=== PATIENT | female | born 1985 | race American Indian/Alaskan Native ===

== ENCOUNTER 2020-04-28 19:53 | Emergency (ER) | payer SELFPAY ==
--- NOTE | 2020-04-28 20:34 | Event Note ---
ED Screening Note Date of service: 04/28/20 Time: 20:33 ED Screening Note: Patient presents with vague complaints of weakness She states she was seen by a doctor on Saturday and was informed to go to the ER at that time for spinal tap, however states she did not go because she could not find anyone to watch her children Patient also states she has been dealing with a systemic fungal infection for the past 8 months This initial assessment/diagnostic orders/clinical plan/treatment(s) is/are marrufo bject to change based on patients health status, clinical progression and re- assessment by fellow clinical providers in the ED. Further treatment and workup at subsequent clinical providers discretion. Patient/guardian urged not to elope from the ED as their condition may be serious if not clinically assessed and managed. Initial orders include: Labs
[2020-04-28 20:36] VITALS: BP 117/83
[2020-04-28 21:30] LABS: Basophils % (Auto) 0.3 % (0.0-1.8); Eosinophils % (Auto) 0.3 % (0.0-4.3); Hematocrit 32.1 % (30.3-42.9); Hemoglobin 11.2 gm/dl (10.1-14.3); Lymphocytes % (Auto) 27.3 % (13.4-35.0); Mean Corpuscular HGB Conc 35 % (30-34); Mean Corpuscular Volume 95 fl (79-97); Monocytes # (Auto) 0.3 K/mm3 (0.0-0.8); Monocytes % (Auto) 7.7 % (0.0-7.3); Platelet Count 295 K/mm3 (140-440); Red Blood Count 3.38 M/mm3 (3.65-5.03); Red Cell Distribution Width 13.5 % (13.2-15.2)
[2020-04-28 21:43] LABS: Alanine Aminotransferase 8 units/L (7-56); Albumin 4.7 g/dL (3.9-5); Blood Urea Nitrogen 15 mg/dL (7-17); Hemolysis Index 25
[2020-04-28 21:47] LABS: BUN/Creatinine Ratio 21
== END 2020-04-28 22:00 | disposition left against medical advice (07) ==
LOC: ED 19:53
DX: B49 Unspecified mycosis (principal); Z53.21 Procedure and treatment not carried out due to patient leaving prior to being seen by health care provider
CPT/HCPCS: 36415; 80053; 84703; 85025

== ENCOUNTER 2020-05-19 18:08 | Observation (INO) | payer OTHER ==
[2020-05-19] MEDS ORDERED: HYDROmorphone 1 MG/1 ML INJ IV ONE ×5 (18:29→23:13)
[2020-05-19] MEDS ORDERED: LACTATED RINGERS 1,000 ML IV ONE (18:29)
[2020-05-19] MEDS ORDERED: ONDANSETRON 4 MG/2 ML INJ IV ONE (18:29)
--- NOTE | 2020-05-19 18:31 | Emergency Department Report ---
ED General Adult HPI - General Chief complaint: Abdominal Pain Stated complaint: RT LOW ABDOMINAL PUI?: No Time Seen by Provider: 05/19/20 18:14 Source: patient, EMS ( EMS documentation not available at time of chart dict ation ), RN notes reviewed, old records reviewed Mode of arrival: Stretcher Limitations: Physical Limitation - History of Present Illness Initial comments: The patient was evaluated in the emergency department for symptoms described in the history of present illness. He/she was evaluated in the context of the global COVID-19 pandemic, which necessitated consideration that the patient might be at risk for infection with the virus that causes COVID-19. Institutional protocols and algorithms that pertain to the evaluation of patients at risk for COVID-19 are in a state of rapid change based on informati on released by regulatory bodies including the CDC and federal and state organizations. These policies and algorithms were followed during the patient's care in the emergency department. Please note that these policies, procedures and recommendations changed on a rapid basis. During the entire history and physical examination, I am chaperoned by Cris Moreno This is a 34-year-old female. She is not known to myself previously. She has a distant history of bariatric surgery and gastric bypass. She reports her bariatric surgeon is Dr. Ag. The patient presents to the ER today with a complaint of epigastric right upper quadrant, right flank and bilateral lower quadrant abdominal pain. This has started within the past few hours. No headache, neck pain, chest pain, shortness of breath. Positive nausea. No vomiting. She is not sure if she is having dysuria. No vaginal discharge. She is currently menstruating. Pain is sharp, throbbing and aching, increases with palpation. Decreases with rest and position and intravenous pain medicine. -: Gradual, hour(s) Location: abdomen Radiation: back Quality: aching Consistency: constant Improves with: medication, rest Worsens with: movement - Related Data Allergies Allergy/AdvReac Type Severity Reaction Status Date / Time No Known Allergies Allergy Unverified 04/28/20 20:55 ED Review of Systems ROS: Stated complaint: RT LOW ABDOMINAL Other details as noted in HPI Constitutional: malaise, weakness. denies: fever Eyes: denies: eye discharge ENT: denies: epistaxis Respiratory: denies: cough Cardiovascular: denies: chest pain Gastrointestinal: nausea. denies: hematemesis, melena, hematochezia Genitourinary: other (Vaginal bleeding at this time). denies: dysuria, frequency Musculoskeletal: back pain. denies: myalgia Neurological: weakness Psychiatric: anxiety Hematological/Lymphatic: denies: easy bleeding ED Past Medical Hx - Past Medical History Hx Diabetes: Yes - Surgical History Additional Surgical History: Gastric Bypass. Umbilical Hernia repair. C- section. Systemic Fungal Infection - Social History Smoking Status: Never Smoker Substance Use Type: None ED Physical Exam - General General appearance: alert, anxious, in distress - Head Head exam: Present: atraumatic, normocephalic - Eye Eye exam: Present: normal appearance, EOMI. Absent: nystagmus - ENT ENT exam: Present: normal exam, normal orophraynx, mucous membranes moist, normal external ear exam - Neck Neck exam: Present: normal inspection, full ROM. Absent: tenderness, meningismus - Respiratory Respiratory exam: Present: normal lung sounds bilaterally. Absent: respiratory distress, wheezes, rales, chest wall tenderness, accessory muscle use, decreased breath sounds - Cardiovascular Cardiovascular Exam: Present: regular rate, normal rhythm, normal heart sounds. Absent: bradycardia, tachycardia, irregular rhythm, systolic murmur, diastolic murmur, rubs, gallop - GI/Abdominal GI/Abdominal exam: Present: soft, tenderness, other (There is mild diffuse abdominal tenderness.). Absent: distended, guarding, rebound, rigid, pulsatile mass - External exam: Present: normal external exam Speculum exam: Present: normal speculum exam, vaginal bleeding (Minimal vaginal bleeding), other (Chaperoned by Ute moreno) Bi-manual exam: Present: adnexal tenderness (Minimal left-sided adnexal tender ness). Absent: cervical motion tendernes - Extremities Exam Extremities exam: Present: normal inspection, full ROM, other (2+ pulses noted in the bilateral upper and lower extremities. There is no palpable cord. negative Homans sign. Muscular compartments are soft. The pelvis is stable.). Absent: calf tenderness - Back Exam Back exam: Present: normal inspection, full ROM. Absent: tenderness, CVA tenderness (R), CVA tenderness (L), paraspinal tenderness, vertebral tenderness - Neurological Exam Neurological exam: Present: alert, other (No facial droop. Tongue midline. Extraocular movements intact bilaterally. Facial sensation intact to light touch in V1, V2, V3 distribution bilaterally. 5 and a 5 strength in 4 extremities. Sensation intact to light touch in 4 extremities.). Absent: motor sensory deficit - Psychiatric Psychiatric exam: Present: anxious - Skin Skin exam: Present: warm, dry, intact, normal color. Absent: rash ED Course Vital Signs 05/19/20 05/19/20 05/19/20 18:17 19:00 19:26 Temperature 98.4 F Pulse Rate 90 79 77 Respiratory 20 21 Rate Blood Pressure 130/86 Blood Pressure 125/66 [Left] O2 Sat by Pulse 99 100 Oximetry 05/19/20 05/19/20 05/19/20 19:30 19:45 19:46 Temperature Pulse Rate 80 75 84 Respiratory 18 18 10 L Rate Blood Pressure 130/87 Blood Pressure 111/68 [Left] O2 Sat by Pulse 98 97 Oximetry 05/19/20 05/19/20 05/19/20 21:08 21:15 21:28 Temperature Pulse Rate 79 74 83 Respiratory 20 18 18 Rate Blood Pressure 111/68 130/89 Blood Pressure 130/89 [Left] O2 Sat by Pulse 99 Oximetry 05/19/20 05/19/20 05/19/20 21:30 21:46 23:25 Temperature Pulse Rate 83 89 68 Respiratory 18 21 16 Rate Blood Pressure 130/89 130/89 130/89 Blood Pressure [Left] O2 Sat by Pulse 100 97 Oximetry - Reevaluation(s) Reevaluation #1: 05/19/20 19:54 Differential diagnosis, including but not limited to: Obstruction, colitis, diverticulitis, internal hernia, ovarian cyst, ovarian torsion, renal colic, urinary tract infection, bowel obstruction, narcotic bowel syndrome, cyclic vomiting syndrome, pelvic inflammatory disease Assessment and plan: 34-year-old female with diffuse abdominal pain. She is status post bariatric surgery. She has mild diffuse abdominal tenderness. Denies recent sexual contact, personal history of PID/STI. Mild gynecologic bleeding noted at this time. Minimal left-sided adnexal tenderness. We will treat her pain aggressively. Obtain CT scan of the abdomen pelvis with IV and oral contrast. Obtain pelvic ultrasound. Obtain EKG and urinalysis. Reassess after initial data points. Have discussed this plan of care with the patient, who verbalized understanding, and is amenable to this plan of care Reevaluation #2: 05/19/20 20:20 Vital Signs 05/19/20 05/19/20 05/19/20 18:17 19:00 19:45 Temperature 98.4 F Pulse Rate 90 79 75 Respiratory 20 18 Rate Blood Pressure 130/86 Blood Pressure 125/66 111/68 [Left] O2 Sat by Pulse 99 98 Oximetry 05/19/20 23:07 Patient has received multiple rounds of pain medication and nausea medication. She is still having pain. She was nauseous and vomited up x1. She is still very uncomfortable. Objective diagnostics unremarkable. CT scan reviewed and appreciated. However, we cannot exclude internal hernia/Petersons hernia. I will contact her bariatric surgeon to discuss. Patient amenable to admission for serial abdominal exams, pain control, antiemesis control, and urgent general surgical consultation. 05/20/20 00:13 I have discussed the patient's history, physical, pertinent laboratory studies and imaging studies with her general surgeon, Dr. Ag. Dr. Ag advises that her group can follow in evaluation and consultation, advises avoidance of NSAIDs, antiemetics, pain medication, nausea medication and appropriate IV fluids would be reasonable. Hospital physician, Dr. Khanna to admit ED Medical Decision Making - Lab Data Result diagrams: 05/19/20 18:44 05/19/20 18:44 Vital Signs 05/19/20 18:17 Temperature 98.4 F Pulse Rate 90 Blood Pressure 130/86 Lab Results 05/19/20 05/19/20 05/19/20 Range/Units 18:44 18:44 18:44 WBC 4.7 (4.5-11.0) K/mm3 RBC 3.52 L (3.65-5.03) M/mm3 Hgb 11.6 (10.1-14.3) gm/dl Hct 33.8 (30.3-42.9) % MCV 96 (79-97) fl MCH 33 H (28-32) pg MCHC 34 (30-34) % RDW 14.3 (13.2-15.2) % Plt Count 287 (140-440) K/mm3 PT 11.6 L (12.2-14.9) Sec. INR 0.87 (0.87-1.13) Sodium 133 L (137-145) mmol/L Potassium 5.0 (3.6-5.0) mmol/L Chloride 99.2 (98-107) mmol/L Carbon Dioxide 26 (22-30) mmol/L Anion Gap 13 mmol/L BUN 8 (7-17) mg/dL Creatinine 0.6 (0.6-1.2) mg/dL Estimated GFR > 60 ml/min BUN/Creatinine Ratio 13 % Glucose 145 H (65-100) mg/dL Calcium 9.6 (8.4-10.2) mg/dL Magnesium 2.20 (1.7-2.3) mg/dL Total Bilirubin < 0.20 (0.1-1.2) mg/dL AST 13 (5-40) units/L ALT 8 (7-56) units/L Alkaline Phosphatase 71 (35-129) units/L Total Creatine Kinase 104 (30-135) units/L Total Protein 7.1 (6.3-8.2) g/dL Albumin 4.1 (3.9-5) g/dL Albumin/Globulin Ratio 1.4 % Lipase 35 (13-60) units/L HCG, Quant (0-4) mIU/mL Urine Color (Yellow) Urine Turbidity (Clear) Urine pH (5.0-7.0) Ur Specific [place] (1.003-1.030) Urine Protein (Negative) mg/dL Urine Glucose (UA) (Negative) mg/dL Urine Ketones (Negative) mg/dL Urine Blood (Negative) Urine Nitrite (Negative) Urine Bilirubin (Negative) Urine Urobilinogen (<2.0) mg/dL Ur Leukocyte Esterase (Negative) Urine WBC (Auto) (0.0-6.0) /HPF Urine RBC (Auto) (0.0-6.0) /HPF U Epithel Cells (Auto) (0-13.0) /HPF 05/19/20 05/19/20 Range/Units 18:44 Unknown WBC (4.5-11.0) K/mm3 RBC (3.65-5.03) M/mm3 Hgb (10.1-14.3) gm/dl Hct (30.3-42.9) % MCV (79-97) fl MCH (28-32) pg MCHC (30-34) % RDW (13.2-15.2) % Plt Count (140-440) K/mm3 PT (12.2-14.9) Sec. INR (0.87-1.13) Sodium (137-145) mmol/L Potassium (3.6-5.0) mmol/L Chloride (98-107) mmol/L Carbon Dioxide (22-30) mmol/L Anion Gap mmol/L BUN (7-17) mg/dL Creatinine (0.6-1.2) mg/dL Estimated GFR ml/min BUN/Creatinine Ratio % Glucose (65-100) mg/dL Calcium (8.4-10.2) mg/dL Magnesium (1.7-2.3) mg/dL Total Bilirubin (0.1-1.2) mg/dL AST (5-40) units/L ALT (7-56) units/L Alkaline Phosphatase (35-129) units/L Total Creatine Kinase (30-135) units/L Total Protein (6.3-8.2) g/dL Albumin (3.9-5) g/dL Albumin/Globulin Ratio % Lipase (13-60) units/L HCG, Quant < 2 (0-4) mIU/mL Urine Color Yellow (Yellow) Urine Turbidity Clear (Clear) Urine pH 8.0 H (5.0-7.0) Ur Specific [place] 1.018 (1.003-1.030) Urine Protein <15 mg/dl (Negative) mg/dL Urine Glucose (UA) Neg (Negative) mg/dL Urine Ketones Neg (Negative) mg/dL Urine Blood Lg (Negative) Urine Nitrite Neg (Negative) Urine Bilirubin Neg (Negative) Urine Urobilinogen < 2.0 (<2.0) mg/dL Ur Leukocyte Esterase Neg (Negative) Urine WBC (Auto) 1.0 (0.0-6.0) /HPF Urine RBC (Auto) 101.0 (0.0-6.0) /HPF U Epithel Cells (Auto) 1.0 (0-13.0) /HPF - EKG Data -: EKG Interpreted by [facility] EKG shows normal: sinus rhythm Rate: normal - EKG Data When compared to previous EKG there are: previous EKG unavailable 05/19/20 21:26 EKG interpreted at 21: 11 Sinus rhythm, 70 bpm. Normal axis, normal intervals, high left ventricular voltage.. Poor R wave progression, low voltage in V2. This is an abnormal EKG. This is not a STEMI. - Radiology Data Radiology results: pending Critical care attestation.: If time is entered above; I have spent that time in minutes in the direct care of this critically ill patient, excluding procedure time. ED Disposition Clinical Impression: Acute abdominal pain, History of bariatric surgery, Intractable abdominal pain Disposition: OP ADMIT IP TO THIS HOSP Is pt being admited?: Yes Does the pt Need Aspirin: No Condition: Good Instructions: Abdominal Pain (ED) Referrals: PRIMARY CARE, [Primary Care Provider] - 3-5 Days
[2020-05-19 19:00] LABS: Hematocrit 33.8 % (30.3-42.9); Hemoglobin 11.6 gm/dl (10.1-14.3); Mean Corpuscular HGB Conc 34 % (30-34); Mean Corpuscular Volume 96 fl (79-97); Platelet Count 287 K/mm3 (140-440); Red Blood Count 3.52 M/mm3 (3.65-5.03); Red Cell Distribution Width 14.3 % (13.2-15.2)
[2020-05-19 19:06] LABS: Bilirubin,Urine NEG (Negative); Blood,Urine LG (Negative); Color,Urine Yellow (Yellow); Protein,Urine <15 mg/dL mg/dL (Negative); Urobilinogen,Urine < 2.0 mg/dL (<2.0)
[2020-05-19 19:11] LABS: INR 0.87 (0.87-1.13)
[2020-05-19 19:18] LABS: Alanine Aminotransferase 8 units/L (7-56); Albumin 4.1 g/dL (3.9-5); BUN/Creatinine Ratio 13; Blood Urea Nitrogen 8 mg/dL (7-17); Calcium 9.6 mg/dL (8.4-10.2); Hemolysis Index 5
[2020-05-19] MEDS ORDERED: FAMOTIDINE 20 MG/2 ML INJ IV ONE (19:32)
--- NOTE | 2020-05-19 21:33 | Ultrasound Report ---
US pelvis duplex doppler comp INDICATION / CLINICAL INFORMATION: acute lower abd pain COMPARISON: None available. TECHNIQUE: Multiple sonographic images of the pelvis were obtained and assessed for grayscale appeara nce and color Doppler flow. FINDINGS: The uterus measures 7.2 x 3.5 x 5.6 cm and is normal in echogenicity. The endometrial stripe measures 0.3 cm in thickness. The uterus is anteflexed and anteverted. The right ovary measures 2.9 x 2.1 x 2.4 cm and is normal in echogenicity. There is normal Doppler fl ow to the right ovary. Several tiny right ovarian follicles are noted. The left ovary measures 3.0 x 1.8 x 1.3 cm and is normal in echogenicity. There is normal Doppler poncho w to left ovary. There is no free fluid in the cul-de-sac. IMPRESSION: No significant sonographic abnormalities. Signer Name: Evan Harris MD Signed: 05/19/2020 9:28 PM Workstation Name: [email or web address]
[2020-05-19] MEDS ORDERED: METOCLOPRAMIDE 10 MG/2 ML INJ IV ONE (21:47)
--- NOTE | 2020-05-19 21:54 | Cat Scan Report ---
CT ABDOMEN AND PELVIS WITH CONTRAST INDICATION / CLINICAL INFORMATION: Pt states acute R.U.Q., RIGHT Mid R.L.Q. abdominal pain.. TECHNIQUE: Axial CT images were obtained through the abdomen and pelvis following the administration of intraven ous contrast. All CT scans at this location are performed using CT dose reduction for ALARA by means of automated exposure control. COMPARISON: None available. FINDINGS: LOWER CHEST: No significant abnormality. LIVER: No significant abnormality. GALLBLADDER: No significant abnormality. PANCREAS: No significant abnormality. SPLEEN: No significant abnormality. ADRENALS: No significant abnormality. KIDNEYS / URETERS: No significant abnormality. URINARY BLADDER: No significant abnormality. REPRODUCTIVE ORGANS: No significant abnormality. STOMACH / SMALL BOWEL: No significant abnormality. COLON: No significant abnormality. Moderate ascending colonic stool burden. APPENDIX: No significant abnormality. PERITONEUM: No free fluid. No free air. No fluid collection. LYMPH NODES: No significant adenopathy. AORTA / ARTERIES: No significant abnormality. IVC / VEINS: No significant abnormality. SKELETAL SYSTEM: No significant abnormality. ADDITIONAL FINDINGS: None. IMPRESSION: 1. No acute abdominopelvic abnormality. 2. Moderate ascending colonic stool burden. Signer Name: Evan Harris MD Signed: 05/19/2020 9:50 PM Workstation Name: [email or web address]
[2020-05-19 22:12] LABS: Amphetamine Screen,Urine PRESUMPTIVE NEGATIVE; Benzodiazepines Screen,Urine PRESUMPTIVE NEGATIVE; Cannabinoid Screen,Urine PRESUMPTIVE NEGATIVE; Cocaine Screen,Urine PRESUMPTIVE NEGATIVE; Methadone Screen,Urine PRESUMPTIVE NEGATIVE; Opiate Screen,Urine PRESUMPTIVE NEGATIVE
[2020-05-20] MEDS ORDERED: ACETAMINOPHEN 325 MG TAB PO PRN (00:28)
[2020-05-20] MEDS ORDERED: ONDANSETRON 4 MG/2 ML INJ IV PRN ×2 (00:28→14:58)
[2020-05-20] MEDS ORDERED: hydrALAZINE 20 MG/1 ML INJ IV PRN (00:30)
--- NOTE | 2020-05-20 00:37 | History and Physical Report ---
History of Present Illness Date of examination: 05/20/20 Date of admission: 05/19/20 Chief complaint: Abdominal pain Nausea History of present illness: 34-year-old female with history of bariatric surgery and gastric bypass was brought to the emergency room because of epigastric right upper quadrant, right flank and bilateral lower quadrant abdominal pain for the past few hours. Pain is sharp, throbbing and aching, increases with palpation. Decreases with rest and position and intravenous pain medicine. Patient complained of nausea nausea. No vomiting. She is not sure if she is having dysuria. No vaginal discharge. She is currently menstruating. CT scan of the abdomen and pelvis shows no acute abdominal pelvic abnormality moderate ascending colonic stool burden. Dr. Ag will see the patient in consultation Past History Past Medical History: other (Bariatric surgery) Medications and Allergies Allergies Allergy/AdvReac Type Severity Reaction Status Date / Time No Known Allergies Allergy Unverified 04/28/20 20:55 Active Meds: Active Medications Acetaminophen (Acetaminophen 325 Mg Tab) 650 mg PO Q4H PRN PRN Reason: Pain MILD(1-3)/Fever >100.5/[place] Famotidine (Famotidine 20 Mg/2 Ml Inj) 20 mg IV BID MARISOL Heparin Sodium (Porcine) (Heparin 5,000 Unit/1 Ml Vial) 5,000 unit SUB-Q Q8HR MARISOL Hydralazine HCl (Hydralazine 20 Mg/1 Ml Inj) 10 mg IV Q6H PRN PRN Reason: htn Dextrose/Sodium Chloride (D5/0.45ns) 1,000 mls @ 100 mls/hr IV DIRECT MARISOL Morphine Sulfate (Morphine 2 Mg/1 Ml Inj) 2 mg IV Q4H PRN PRN Reason: Pain, Moderate (4-6) Ondansetron HCl (Ondansetron 4 Mg/2 Ml Inj) 4 mg IV Q8H PRN PRN Reason: Nausea And Vomiting Sodium Chloride (Sodium Chloride 0.9% 10 Ml Flush Syringe) 10 ml IV BID MARISOL Sodium Chloride (Sodium Chloride 0.9% 10 Ml Flush Syringe) 10 ml IV PRN PRN PRN Reason: LINE FLUSH Review of Systems Constitutional: weakness Gastrointestinal: abdominal pain, nausea Exam - Constitutional Vitals: Temp Pulse Resp BP Pulse Ox 98.4 F 68 16 130/89 97 05/19/20 18:17 05/19/20 23:25 05/19/20 23:25 05/19/20 23:25 05/19/20 23:25 General appearance: Present: no acute distress, well-nourished - EENT Eyes: Present: PERRL ENT: hearing intact, clear oral mucosa - Neck Neck: Present: supple, normal ROM - Respiratory Respiratory effort: normal Respiratory: bilateral: CTA - Cardiovascular Heart Sounds: Present: S1 & S2. Absent: rub, click - Extremities Extremities: pulses symmetrical, No edema Peripheral Pulses: within normal limits - Abdominal General gastrointestinal: Present: soft, tender, non-distended, normal bowel sounds Female genitourinary: Present: normal - Integumentary Integumentary: Present: clear, warm, dry - Musculoskeletal Musculoskeletal: gait normal, strength equal bilaterally - Psychiatric Psychiatric: appropriate mood/affect, intact judgment & insight - Neurologic Neurologic: CNII-XII intact, moves all extremities Results - Labs CBC & Chem 7: 05/19/20 18:44 05/19/20 18:44 Labs: Laboratory Last Values WBC 4.7 K/mm3 (4.5-11.0) 05/19/20 18:44 RBC 3.52 M/mm3 (3.65-5.03) L 05/19/20 18:44 Hgb 11.6 gm/dl (10.1-14.3) 05/19/20 18:44 Hct 33.8 % (30.3-42.9) 05/19/20 18:44 MCV 96 fl (79-97) 05/19/20 18:44 MCH 33 pg (28-32) H 05/19/20 18:44 MCHC 34 % (30-34) 05/19/20 18:44 RDW 14.3 % (13.2-15.2) 05/19/20 18:44 Plt Count 287 K/mm3 (140-440) 05/19/20 18:44 PT 11.6 Sec. (12.2-14.9) L 05/19/20 18:44 INR 0.87 (0.87-1.13) 05/19/20 18:44 Sodium 133 mmol/L (137-145) L 05/19/20 18:44 Potassium 5.0 mmol/L (3.6-5.0) 05/19/20 18:44 Chloride 99.2 mmol/L (98-107) 05/19/20 18:44 Carbon Dioxide 26 mmol/L (22-30) 05/19/20 18:44 Anion Gap 13 mmol/L 05/19/20 18:44 BUN 8 mg/dL (7-17) 05/19/20 18:44 Creatinine 0.6 mg/dL (0.6-1.2) 05/19/20 18:44 Estimated GFR > 60 ml/min 05/19/20 18:44 BUN/Creatinine Ratio 13 % 05/19/20 18:44 Glucose 145 mg/dL (65-100) H 05/19/20 18:44 Lactic Acid 1.50 mmol/L (0.7-2.0) 05/19/20 19:41 Calcium 9.6 mg/dL (8.4-10.2) 05/19/20 18:44 Magnesium 2.20 mg/dL (1.7-2.3) 05/19/20 18:44 Total Bilirubin < 0.20 mg/dL (0.1-1.2) 05/19/20 18:44 AST 13 units/L (5-40) 05/19/20 18:44 ALT 8 units/L (7-56) 05/19/20 18:44 Alkaline Phosphatase 71 units/L (35-129) 05/19/20 18:44 Total Creatine Kinase 104 units/L (30-135) 05/19/20 18:44 Total Protein 7.1 g/dL (6.3-8.2) 05/19/20 18:44 Albumin 4.1 g/dL (3.9-5) 05/19/20 18:44 Albumin/Globulin Ratio 1.4 % 05/19/20 18:44 Amylase 55 units/L (27-131) 05/19/20 18:44 Lipase 35 units/L (13-60) 05/19/20 18:44 HCG, Quant < 2 mIU/mL (0-4) 05/19/20 18:44 Urine Color Yellow (Yellow) 05/19/20 Unknown Urine Turbidity Clear (Clear) 05/19/20 Unknown Urine pH 8.0 (5.0-7.0) H 05/19/20 Unknown Ur Specific [place] 1.018 (1.003-1.030) 05/19/20 Unknown Urine Protein <15 mg/dl mg/dL (Negative) 05/19/20 Unknown Urine Glucose (UA) Neg mg/dL (Negative) 05/19/20 Unknown Urine Ketones Neg mg/dL (Negative) 05/19/20 Unknown Urine Blood Lg (Negative) 05/19/20 Unknown Urine Nitrite Neg (Negative) 05/19/20 Unknown Urine Bilirubin Neg (Negative) 05/19/20 Unknown Urine Urobilinogen < 2.0 mg/dL (<2.0) 05/19/20 Unknown Ur Leukocyte Esterase Neg (Negative) 05/19/20 Unknown Urine WBC (Auto) 1.0 /HPF (0.0-6.0) 05/19/20 Unknown Urine RBC (Auto) 101.0 /HPF (0.0-6.0) 05/19/20 Unknown U Epithel Cells (Auto) 1.0 /HPF (0-13.0) 05/19/20 Unknown Urine Opiates Screen Presumptive negative 05/19/20 Unknown Urine Methadone Screen Presumptive negative 05/19/20 Unknown Ur Barbiturates Screen Presumptive negative 05/19/20 Unknown Ur Phencyclidine Scrn Presumptive negative 05/19/20 Unknown Ur Amphetamines Screen Presumptive negative 05/19/20 Unknown U Benzodiazepines Scrn Presumptive negative 05/19/20 Unknown Urine Cocaine Screen Presumptive negative 05/19/20 Unknown U Marijuana (THC) Screen Presumptive negative 05/19/20 Unknown Drugs of Abuse Note Disclamer 05/19/20 Unknown Microbiology: Microbiology 05/19/20 19:26 Vaginal Wet Prep - Final - Imaging and Cardiology CT scan - abdomen: image reviewed Assessment and Plan VTE prophylaxis?: Chemical Plan of care discussed with patient/family: Yes - Patient Problems (1) Acute abdominal pain Current Visit: Yes Status: Acute Plan to address problem: Admit the patient to the medical telemetry. Put the patient on nothing by mouth. IV fluid D5 half-normal saline at the rate of 100 cc/h. Pepcid 20 mg IV every 12 hours. Zofran 4 mg IV every 4 hours as needed. Morphine 2 mg IV every [address] Dias will see the patient in consultation in the morning. Recheck CBC BMP in the morning (2) History of bariatric surgery Current Visit: Yes Status: Acute Plan to address problem: Pepcid 20 mg IV every 12 hours. Zofran 4 mg IV every 4 hours as needed. Morphine 2 mg IV every [address] Dias will see the patient in consultation in the morning. Recheck CBC BMP in the morning (3) Nausea Current Visit: Yes Status: Acute Plan to address problem: Pepcid 20 mg IV every 12 hours. Zofran 4 mg IV every 4 hours as needed. (4) DVT prophylaxis Current Visit: Yes Status: Acute Plan to address problem: Heparin 5000 units subcu every 8 hours for DVT prophylaxis. Pepcid 20 mg IV every 12 hours for GI prophylaxis. Patient is a full code
[2020-05-20] MEDS: D5W/0.45% NACL 1,000 ML IV SCH ×2 (01:55→17:46)
[2020-05-20] MEDS: MORPHINE 2 MG/1 ML INJ IV PRN ×2 (01:56→07:44)
[2020-05-20] MEDS: HEPARIN 5,000 UNIT/1 ML VIAL SUB-Q SCH ×3 (07:44→22:19)
[2020-05-20] MEDS ORDERED: KETOROLAC 30 MG/1 ML INJ IV STA (09:32)
[2020-05-20] MEDS: FAMOTIDINE 20 MG/2 ML INJ IV SCH ×2 (09:43→22:19)
[2020-05-20] MEDS ORDERED: MORPHINE 2 MG/1 ML INJ IV PRN ×2 (10:00→15:53)
--- NOTE | 2020-05-20 10:02 | Consultation ---
History of Present Illness Consult date: 05/20/20 Reason for consult: abdominal pain - History of present illness History of present illness: 34 year old female who had gastric bypass by me about 6 years ago. She has lost over 100lbs and overall doing well. She presented to the ED yesterday with a one day hx of intense abdominal pain focused in the epigastric area and radiating to her RLQ. She denies nausea or vomiting at this time but says she was nauseous in the ER. She says that she has been concerned about her health for a while and not feeling well in general. She had seen a doctor to work up her symptoms of difficulty breathing, rashes, and overall not feeling well (others in her household have had similar symptoms), she says they found multiple toxins in her system. She has since moved out of the housing she was in but does not feel much better. She had CT scan and US in the ED that were unremarkable for acute pathology. In terms of bariatric maintenance she says she has been taking her vitamins and following the program. Past History Past Medical History: other (Bariatric surgery) Past Surgical History: Other (gatraic bypass) Medications and Allergies Allergies Allergy/AdvReac Type Severity Reaction Status Date / Time No Known Allergies Allergy Verified 05/20/20 00:33 Active Meds: Active Medications Acetaminophen (Acetaminophen 325 Mg Tab) 650 mg PO Q4H PRN PRN Reason: Pain MILD(1-3)/Fever >100.5/[place] Famotidine (Famotidine 20 Mg/2 Ml Inj) 20 mg IV BID [facility] Last Admin: 05/20/20 09:43 Dose: 20 mg Documented by: Heparin Sodium (Porcine) (Heparin 5,000 Unit/1 Ml Vial) 5,000 unit SUB-Q Q8HR [facility] Last Admin: 05/20/20 07:44 Dose: 5,000 unit Documented by: Hydralazine HCl (Hydralazine 20 Mg/1 Ml Inj) 10 mg IV Q6H PRN PRN Reason: htn Dextrose/Sodium Chloride (D5/0.45ns) 1,000 mls @ 100 mls/hr IV DIRECT [facility] Last Admin: 05/20/20 01:55 Dose: 100 mls/hr Documented by: Morphine Sulfate (Morphine 2 Mg/1 Ml Inj) 2 mg IV Q4H PRN PRN Reason: Pain, Moderate (4-6) Ondansetron HCl (Ondansetron 4 Mg/2 Ml Inj) 4 mg IV Q8H PRN PRN Reason: Nausea And Vomiting Last Admin: 05/20/20 01:56 Dose: 4 mg Documented by: Sodium Chloride (Sodium Chloride 0.9% 10 Ml Flush Syringe) 10 ml IV BID [facility] Last Admin: 05/20/20 09:44 Dose: 10 ml Documented by: Sodium Chloride (Sodium Chloride 0.9% 10 Ml Flush Syringe) 10 ml IV PRN PRN PRN Reason: LINE FLUSH Review of Systems - Constitutional malaise, poor appetite - Respiratory no shortness of breath - Gastrointestinal abdominal pain, nausea - Integumentary rash Exam Vital Signs Temp Pulse BP 98.4 F 90 130/86 05/19/20 18:17 05/19/20 18:17 05/19/20 18:17 - General physical appearance Positive: well developed, no distress, moderate pain - Respiratory Positive: normal expansion, normal respiratory effort - Cardiovascular Heart Sounds: Present: S1 & S2 - Abdomen Abdomen: Present: soft, other (generalized tenderness to palpation). Absent: distended, guarding, rigid Results - Labs 05/19/20 18:44 05/19/20 18:44 Abnormal lab results 05/19/20 05/19/20 05/19/20 Range/Units 18:44 18:44 18:44 RBC 3.52 L (3.65-5.03) M/mm3 MCH 33 H (28-32) pg PT 11.6 L (12.2-14.9) Sec. Sodium 133 L (137-145) mmol/L Glucose 145 H (65-100) mg/dL Urine pH (5.0-7.0) 05/19/20 Range/Units Unknown RBC (3.65-5.03) M/mm3 MCH (28-32) pg PT (12.2-14.9) Sec. Sodium (137-145) mmol/L Glucose (65-100) mg/dL Urine pH 8.0 H (5.0-7.0) Diabetes panel 05/19/20 Range/Units 18:44 Sodium 133 L (137-145) mmol/L Potassium 5.0 (3.6-5.0) mmol/L Chloride 99.2 (98-107) mmol/L Carbon Dioxide 26 (22-30) mmol/L BUN 8 (7-17) mg/dL Creatinine 0.6 (0.6-1.2) mg/dL Glucose 145 H (65-100) mg/dL Calcium 9.6 (8.4-10.2) mg/dL AST 13 (5-40) units/L ALT 8 (7-56) units/L Alkaline Phosphatase 71 (35-129) units/L Total Protein 7.1 (6.3-8.2) g/dL Albumin 4.1 (3.9-5) g/dL Calcium panel 05/19/20 Range/Units 18:44 Calcium 9.6 (8.4-10.2) mg/dL Albumin 4.1 (3.9-5) g/dL Pituitary panel 05/19/20 Range/Units 18:44 Sodium 133 L (137-145) mmol/L Potassium 5.0 (3.6-5.0) mmol/L Chloride 99.2 (98-107) mmol/L Carbon Dioxide 26 (22-30) mmol/L BUN 8 (7-17) mg/dL Creatinine 0.6 (0.6-1.2) mg/dL Glucose 145 H (65-100) mg/dL Calcium 9.6 (8.4-10.2) mg/dL Adrenal panel 05/19/20 Range/Units 18:44 Sodium 133 L (137-145) mmol/L Potassium 5.0 (3.6-5.0) mmol/L Chloride 99.2 (98-107) mmol/L Carbon Dioxide 26 (22-30) mmol/L BUN 8 (7-17) mg/dL Creatinine 0.6 (0.6-1.2) mg/dL Glucose 145 H (65-100) mg/dL Calcium 9.6 (8.4-10.2) mg/dL Total Bilirubin < 0.20 (0.1-1.2) mg/dL AST 13 (5-40) units/L ALT 8 (7-56) units/L Alkaline Phosphatase 71 (35-129) units/L Total Protein 7.1 (6.3-8.2) g/dL Albumin 4.1 (3.9-5) g/dL - Imaging CT scan - abdomen: pending, report reviewed, image reviewed CT scan - chest: pending CT scan - pelvis: report reviewed, image reviewed US - pelvic: report reviewed Assessment and Plan 34 year old female with hx of gastric bypass, no acute abdominal pain of unclear etiology. Afebrile and stable. Will take to OR today for diagnostic laparoscopy and EGD. If no abnormal findings will defer further workup of symptoms to primary. Pt is consented and expressed understanding of the risks and benefits.
[2020-05-20] MEDS ORDERED: LIDOCAINE (1%) 10 MG/1 ML VIAL 20 ML MDV ONE (10:05)
[2020-05-20] MEDS ORDERED: BUPIVACAINE/PF (0.5%) 5 MG/1 ML 30 ML VIAL INFILTRATI ONE ×2 (10:06→13:38)
--- NOTE | 2020-05-20 11:19 | Ultrasound Report ---
ULTRASOUND RENAL INDICATION: Flank pain. COMPARISON: No relevant prior imaging study available. FINDINGS: RIGHT KIDNEY: Size: 10.3 cm. Echogenicity: Normal. Cortical thickness: 1.5 cm. Stones: None. Hydronephrosis: None. Cyst or mass: None. LEFT KIDNEY: Size: 9.3 cm. Echogenicity: Normal. Cortical thickness: 1.6 cm. Stones: None. Hydronephrosis: None. Cyst or mass: None. Urinary Bladder: No significant abnormality. Free Fluid: None. Additional Findings: None. IMPRESSION 1. No acute sonographic abnormality of the kidneys. Signer Name: Kenney De La O MD Signed: 05/20/2020 11:04 AM Workstation Name: [id number]
--- NOTE | 2020-05-20 11:32 | Electrocardiograph Report ---
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
--- NOTE | 2020-05-20 11:46 | Event Note ---
Patient admitted with abdominal pain with radiation toward the right flank. Notes nausea and vomiting. +pain with urination. CT abdomen and pelvis w contrast showed no stone or acute pathology. She is inconsistent with her story this AM. Remains on pain medications. Surgery consulted for evaluation as she has a history of bypass surgery many years ago. Plan for laparascopy and EGD as per surgery.
[2020-05-20] MEDS ORDERED: LIDOCAINE MPF (2%) 20 MG/1 ML VIAL 5 ML ONE (11:50)
[2020-05-20] MEDS ORDERED: propofoL 200 MG/20 ML VIAL IV ONE (11:50)
[2020-05-20] MEDS ORDERED: HYDROmorphone 1 MG/1 ML INJ ONE (11:50)
[2020-05-20] MEDS ORDERED: dexAMETHasone 20 MG/5 ML VIAL ONE (11:50)
[2020-05-20] MEDS ORDERED: ROCURONIUM 50 MG/5 ML INJ IV ONE (11:50)
[2020-05-20] MEDS ORDERED: ONDANSETRON 4 MG/2 ML INJ ONE (11:50)
--- NOTE | 2020-05-20 11:50 | Anesthesia Consultation ---
Anesthesia Consult and Med Hx Date of service: 05/20/20 - Airway Anesthetic Teeth Evaluation: Good ROM Head & Neck: Adequate Mental/Hyoid Distance: Adequate Mallampati Class: Class II Intubation Access Assessment: Probably Good - Pre-Operative Health Status ASA Pre-Surgery Classification: ASA2 Proposed Anesthetic Plan: General - Pulmonary Hx Smoking: Yes (few cig/day) Hx Asthma: No COPD: No Hx Pneumonia: No - Cardiovascular System Hx Hypertension: Yes (on hydralizine PRN) - Central Nervous System Hx Psychiatric Problems: No (patient is anxious) - Gastrointestinal Hx Gastroesophageal Reflux Disease: Yes (s/p gastric bypass (2014)) - Endocrine Hx Non-Insulin Dependent Diabetes: Yes (resolved after the weight loss) - Other Systems Hx Obesity: Yes (s/p gastric bypass (2014)) - Additional Comments Anesthesia Medical History Comments: patient is convinced that her problem caused by household mycotoxins
--- NOTE | 2020-05-20 11:51 | Anesthesia Day of Surgery ---
Anesthesia Day of Surgery - Day of Surgery Patient Examined: Yes Patient H&P Reviewed: Yes Patient is NPO: Yes
[2020-05-20] MEDS ORDERED: MIDAZOLAM 2 MG/2 ML INJ IV NR (12:12)
[2020-05-20] MEDS ORDERED: ceFAZolin/STERILE WATER 2 GM/20 ML SYRINGE IV NR (12:29)
[2020-05-20] MEDS ORDERED: LACTATED RINGERS 1,000 ML IV SCH (12:30)
[2020-05-20] MEDS ORDERED: metroNIDAZOLE/NS 500 MG/100 ML 500 MG/100 ML BAG IV NR (13:00)
[2020-05-20] MEDS ORDERED: SODIUM CHLORIDE 0.9% IRR 1,500 ML BOTTLE IR ONE (13:38)
[2020-05-20] MEDS ORDERED: LIDOCAINE (1%) 10 MG/1 ML VIAL 20 ML MDV INFILTRATI ONE (13:38)
[2020-05-20] MEDS ORDERED: SUCCINYLCHOLINE CHLORIDE 200 MG/10 ML INJ MDV ONE (13:55)
[2020-05-20] MEDS ORDERED: LACTATED RINGERS 1,000 ML ONE (13:55)
[2020-05-20] MEDS ORDERED: NEOSTIGMINE 10MG/10 ML INJ MDV ONE (14:00)
[2020-05-20] MEDS ORDERED: GLYCOPYRROLATE 0.4 MG/2 ML INJ ONE (14:00)
[2020-05-20] MEDS ORDERED: fentaNYL 100 MCG/2 ML INJ ONE (14:09)
[2020-05-20] MEDS ORDERED: HYDROmorphone 1 MG/1 ML INJ IV PRN ×2 (14:58)
--- NOTE | 2020-05-20 15:13 | Operative Report ---
Operative Report Operative Report: Date: May 20, 2020 Surgeon: Esther Ag MD Human Resources Hr Representative surgeon: Elvi Salgado DO Procedure:1. Diagnostic laparoscopy, 2. Closure of internal hernia, 3. egd Preop diagnosis: Abdominal pain Postop diagnosis: Internal hernia at Roa space Anesthesia:GETA Indication: Patient is a 34-year-old female who presented to the emergency room with a 1 day history of acute severe abdominal pain. She has a history of laparoscopic gastric bypass 6 years ago. All radiographic studies were essentially negative in the ER. Patient was consented for diagnostic laparoscopy to look for any pathology that may have been missed on imaging since her pain was so severe. Details of procedure: Patient brought into the OR suite and laid in supine position. Bilateral lower extremity SCDs were placed. General anesthesia was induced via successful endotracheal tube intubation. A Miller catheter was inserted under sterile conditions. Patient abdomen was prepped and draped in sterile fashion with her arms tucked at her side. After timeout was performed, a Veress needle was used to insufflate the abdomen to a pressure of 15 mmHg. After this a 5 mm trocar was placed using Optiview technique just superior and to the left of the umbilicus. There was noted to be no gross injury to any intra-abdominal structures. 3 working trochars were placed under direct visualization. 5 mm trocar in the left midabdomen, right midabdomen, and right anterior axillary line. Started by running the small bowel limbs to identify orientation. Starting at the Pauline limb it was noted to be twisting like a julian pull around its pedicle. For fear of being confused it was decided to run the common channel starting at the terminal ileum, from distal to proximal. As this was being done, the jejunojejunostomy was reduced from the internal hernia space. Once all bowel was reduced and its correct orientation, the 3 limbs, Pauline limb, common channel and BP limb were all identified and verified. There was noted to be an internal hernia defect at Roa space between the Pauline limb mesentery and the colon. This was closed with a running Surgidek suture. The appendix was examined and found to be within normal limits. And no other pathology was appreciated. There was a 12 mm trocar that replaced the right mid abdomen 5 mm trocar in order to accommodate the Endo Stitch. This fascial defect was closed with a 0 Vicryl using a Zackary Arnold device. The abdomen was then desufflated all trochars removed. skin incisions were closed with 4 Monocryl. All incisions were locally anesthetized with 50-50 lidocaine Marcaine mixture. An EGD was then performed without incident that showed a gastric pouch about 30 mils in capacity, with a gastrojejunostomy anastomosis of about 20 mm. There were no signs of ulceration or suture granuloma. Patient was awoken extubated and taken to recovery in stable condition. All counts were correct. EBL: Less than 5 mL Complications: None immediate Findings: Internal hernia at Roa space
--- NOTE | 2020-05-20 15:13 | Post Anesthesia Evaluation ---
- Post Anesthesia Evaluation Patient Participated: Yes Airway Patent: Yes Stable Respiratory Function: Yes Nausea/Vomiting: No Temp > 96.8F: Yes Pain Manageable: Yes Adequeate Hydration: Yes Anesthesia Complications: No Block Receding Appropriately: Not Applicable Patient on Ventilator: No
[2020-05-20] MEDS ORDERED: oxyCODONE /ACETAMINOPHEN 5-325MG TAB PO PRN (15:53)
--- NOTE | 2020-05-20 17:16 | Event Note ---
Date: 05/20/20 Evaluated pt post op. Pt says she feels significantly better than pre-op with almost resolution of abdominal pain. She was tolerating liquids. Pt can be discharged in am and follow up in two weeks in the office to see me. She can advance diet as tolerated.
[2020-05-20] MEDS: KETOROLAC 30 MG/1 ML INJ IV SCH ×3 (17:47→23:47)
[2020-05-21] MEDS: KETOROLAC 30 MG/1 ML INJ IV SCH (05:22)
[2020-05-21] MEDS: HEPARIN 5,000 UNIT/1 ML VIAL SUB-Q SCH (05:23)
[2020-05-21 07:25] VITALS: BP 103/68
[2020-05-21 08:04] LABS: Basophils % (Auto) 0.3 % (0.0-1.8); Eosinophils % (Auto) 0.1 % (0.0-4.3); Hematocrit 28.7 % (30.3-42.9); Hemoglobin 9.8 gm/dl (10.1-14.3); Lymphocytes # (Auto) 1.7 K/mm3 (1.2-5.4); Lymphocytes % (Auto) 18.9 % (13.4-35.0); Mean Corpuscular HGB Conc 34 % (30-34); Mean Corpuscular Volume 95 fl (79-97); Monocytes # (Auto) 0.7 K/mm3 (0.0-0.8); Monocytes % (Auto) 7.3 % (0.0-7.3); Platelet Count 249 K/mm3 (140-440); Red Blood Count 3.02 M/mm3 (3.65-5.03)
[2020-05-21 08:06] LABS: Blood Urea Nitrogen 6 mg/dL (7-17); Hemolysis Index 0
[2020-05-21 08:14] LABS: BUN/Creatinine Ratio 9
[2020-05-21] MEDS: FAMOTIDINE 20 MG/2 ML INJ IV SCH ×2 (08:31→10:00)
--- NOTE | 2020-05-21 08:42 | Discharge Summary ---
Providers - Providers Date of Admission: 05/20/20 00:14 Date of discharge: 05/21/20 Attending physician: TAO MACHUCA 05/19/20 23:05 Consult to Physician [CONS] Urgent Comment: Dr. Lindsey spoke with Dr. Ag @ [id number] Consulting Provider: SANDIE AG Physician Instructions: Reason For Exam: intractable abd pain Primary care physician: ECONOMIC ANALYSIS DIRECTOR Hospitalization Condition: Good Hospital course: 34-year-old female with history of bariatric surgery and gastric bypass was brought to the emergency room because of epigastric right upper quadrant, right flank and bilateral lower quadrant abdominal pain for the past few hours. Pain is sharp, throbbing and aching, increases with palpation. Decreases with rest a nd position and intravenous pain medicine. Patient complained of nausea nausea. No vomiting. She is not sure if she is having dysuria. No vaginal discharge. She is currently menstruating. CT abdomen and pelvis with contrast showed no stone no acute pathology. Surgery was consulted for evaluation as she has a history of gastric bypass many years ago. General surgery recommended laparoscopy and EGD which she had on 05/20. Laparoscopy showed an internal hernia at the Roa space which was treated. EGD showed gastric pouch about 30 mils in capacity with a gastrojejunostomy anastomosis of about 20 mm. There were no signs of ulceration or suture granuloma. Patient subsequently felt better after procedure and will be discharged to follow-up for surgery 2 weeks. Patient agrees with treatment. Disposition: DC-01 TO HOME OR SELFCARE Final Discharge Diagnosis (Prints w/discharge instructions): Abdominal pain Exam - Constitutional Vitals: Temp Pulse Resp BP Pulse Ox 98.5 F 87 16 103/68 95 05/21/20 07:14 05/21/20 07:14 05/21/20 07:14 05/21/20 07:14 05/21/20 07:14 General appearance: Present: no acute distress, well-nourished - EENT Eyes: Present: PERRL ENT: hearing intact, clear oral mucosa - Neck Neck: Present: supple, normal ROM - Respiratory Respiratory effort: normal Respiratory: bilateral: CTA - Cardiovascular Heart Sounds: Present: S1 & S2. Absent: rub, click - Extremities Extremities: pulses symmetrical, No edema Peripheral Pulses: within normal limits - Abdominal General gastrointestinal: Present: soft, non-tender, non-distended, normal bowel sounds Female genitourinary: Present: normal - Integumentary Integumentary: Present: clear, warm, dry - Musculoskeletal Musculoskeletal: gait normal, strength equal bilaterally - Psychiatric Psychiatric: appropriate mood/affect, intact judgment & insight - Neurologic Neurologic: CNII-XII intact, moves all extremities Plan Diet: regular Additional Instructions: Follow-up with Dr. Ag in 2 weeks Follow up with: PRIMARY CAREMD [Primary Care Provider] - 3-5 Days SANDIE AG MD [Staff Physician] - 7 Days
== END 2020-05-21 16:22 | disposition home or self-care (01) ==
LOC: ED 18:08 → 3B-SURG 05-20 00:14
PROVIDERS: ADMIT Hospitalist; ATTEND Internal Medicine
DX: R10.13 Epigastric pain (principal); R11.0 Nausea; Z98.84 Bariatric surgery status; Z79.899 Other long term (current) drug therapy
CPT/HCPCS: 36415; 43235; 44238; 74177; 76770; 76830; 80048; 80053; 80307; 81001; 82140; 82150; 82550; 83690; 83735; 84702; 85025; 85027; 85610; 87086; 87210; 87591; 93005; 93975; 96361; 96372; 96374; 96375; 96376; 99285; G0378; J0330; J1100; J1170; J1644; J1885; J2250; J2270; J2405; J2704; J2710; J2765; J3010; J7120; Q9967

== ENCOUNTER 2020-06-09 23:55 | Emergency (ER) | payer OTHER ==
[2020-06-10 00:59] LABS: Bacteria,Urine 1+ /HPF (Negative); Bilirubin,Urine NEG (Negative); Blood,Urine NEG (Negative); Color,Urine Yellow (Yellow); Mucus,Urine 2+ /HPF
[2020-06-10 01:35] LABS: Basophils % (Auto) 0.9 % (0.0-1.8); Eosinophils % (Auto) 0.7 % (0.0-4.3); Hematocrit 31.5 % (30.3-42.9); Hemoglobin 10.9 gm/dl (10.1-14.3); Lymphocytes % (Auto) 41.7 % (13.4-35.0); Mean Corpuscular HGB Conc 35 % (30-34); Mean Corpuscular Volume 95 fl (79-97); Monocytes # (Auto) 0.5 K/mm3 (0.0-0.8); Monocytes % (Auto) 11.2 % (0.0-7.3); Platelet Count 291 K/mm3 (140-440); Red Blood Count 3.32 M/mm3 (3.65-5.03); Red Cell Distribution Width 14.3 % (13.2-15.2)
[2020-06-10 01:54] LABS: Blood Urea Nitrogen 11 mg/dL (7-17); Calcium 9.1 mg/dL (8.4-10.2); Hemolysis Index 3
[2020-06-10 01:55] LABS: BUN/Creatinine Ratio 18
[2020-06-10 02:29] LABS: Alanine Aminotransferase 8 units/L (7-56); Albumin 4.3 g/dL (3.9-5)
--- NOTE | 2020-06-10 03:31 | Emergency Department Report ---
ED Abdominal Pain HPI - General Chief Complaint: Abdominal Pain Stated Complaint: BODY PAIN PUI?: No Time Seen by Provider: 06/10/20 03:01 Source: patient Mode of arrival: Ambulatory Limitations: No Limitations - History of Present Illness Initial Comments: Patient is a 34-year-old female who presents emergency room with complaints of body pain and abdominal pain. Patient states she had surgery 3 weeks ago here. Patient states that her pain is a 9 out of 10. Patient states that she is having body aches. Patient states her body aches been going on for 3 months.. Patient states that her abdominal pain is better with rest and worse with movement. Patient states that her abdominal pain has resolved since coming to the hospital. Patient states she felt anxious. Patient denies recent travel. Patient denies recent international travel. Patient denies exposure to the novel coronavirus. Patient denies sick contacts. Patient denies fever and chills. Patient denies cough. Patient denies diarrhea. Patient denies coming in contact with anybody with symptoms of the novel coronavirus. MD Complaint: abdominal pain -: Sudden Location: LLQ Radiation: none Migration to: no migration Severity scale (0 -10): 0 Quality: aching Consistency: now resolved Improves With: rest Worsens With: movement Associated Symptoms: denies: nausea, vomiting, diarrhea, fever, chills, constipation, dysuria, hematemesis, hematochezia, melena, hematuria, syncope - Related Data LMP (females 10-50): last week Previous Rx's Medication Instructions Recorded Last Taken Type Naproxen [Naprosyn TAB] 500 mg PO BID PRN #20 tab 06/10/20 Unknown Rx methOCARBAMOL [Robaxin TAB] 500 mg PO Q6H PRN #15 tablet 06/10/20 Unknown Rx Allergies Allergy/AdvReac Type Severity Reaction Status Date / Time No Known Allergies Allergy Verified 05/20/20 00:33 ED Review of Systems ROS: Stated complaint: BODY PAIN Other details as noted in HPI Constitutional: denies: chills, fever Eyes: denies: eye pain, eye discharge, vision change ENT: denies: ear pain, throat pain Respiratory: denies: cough, shortness of breath, wheezing Cardiovascular: denies: chest pain, palpitations Endocrine: no symptoms reported Gastrointestinal: as per HPI, abdominal pain. denies: nausea, vomiting, diarrhea Genitourinary: denies: urgency, dysuria, discharge Musculoskeletal: denies: back pain, joint swelling, arthralgia Skin: denies: rash, lesions Neurological: denies: headache, weakness, paresthesias Psychiatric: denies: anxiety, depression Hematological/Lymphatic: denies: easy bleeding, easy bruising ED Past Medical Hx - Past Medical History Previous Medical History?: Yes Hx Hypertension: Yes (on hydralizine PRN) Hx Congestive Heart Failure: No Hx Diabetes: Yes Hx Asthma: No Hx COPD: No Hx HIV: No - Surgical History Past Surgical History?: Yes Additional Surgical History: Gastric Bypass. Umbilical Hernia repair. C-secti on. Systemic Fungal Infection. abd - Family History Family history: no significant - Social History Smoking Status: Former Smoker Substance Use Type: None - Medications Home Medications: Home Medications Medication Instructions Recorded Confirmed Last Taken Type Naproxen [Naprosyn TAB] 500 mg PO BID PRN #20 tab 06/10/20 Unknown Rx methOCARBAMOL [Robaxin TAB] 500 mg PO Q6H PRN #15 tablet 06/10/20 Unknown Rx ED Physical Exam - General Limitations: No Limitations General appearance: alert, in no apparent distress - Head Head exam: Present: atraumatic, normocephalic - Eye Eye exam: Present: normal appearance - ENT ENT exam: Present: mucous membranes moist - Neck Neck exam: Present: normal inspection - Respiratory Respiratory exam: Present: normal lung sounds bilaterally. Absent: respiratory distress - Cardiovascular Cardiovascular Exam: Present: regular rate, normal rhythm. Absent: systolic murmur, diastolic murmur, rubs, gallop - GI/Abdominal GI/Abdominal exam: Present: soft, normal bowel sounds. Absent: distended, tenderness, guarding, rebound, rigid - Extremities Exam Extremities exam: Present: normal inspection, full ROM, normal capillary refill. Absent: tenderness, pedal edema, joint swelling, calf tenderness - Back Exam Back exam: Present: normal inspection, full ROM, muscle spasm. Absent: tenderness, CVA tenderness (R), CVA tenderness (L), paraspinal tenderness, v ertebral tenderness - Neurological Exam Neurological exam: Present: alert, oriented X3 - Psychiatric Psychiatric exam: Present: normal affect, normal mood - Skin Skin exam: Present: warm, dry, intact, normal color. Absent: rash ED Course Vital Signs 06/10/20 06/10/20 00:03 02:55 Temperature 98.5 F Pulse Rate 78 Respiratory 16 18 Rate Blood Pressure 147/92 O2 Sat by Pulse 100 Oximetry - Reevaluation(s) Reevaluation #1: I discussed all results and clinical findings with patient. I discussed plan of care with patient. Patient agrees with plan of care. Patient is stable for discharge. Patient will be discharged home. Patient given discharge instruc tions. Patient voiced understanding of discharge instructions. 06/10/20 03:29 ED Medical Decision Making - Lab Data Result diagrams: 06/10/20 00:57 06/10/20 00:57 - Medical Decision Making Patient is a 34-year-old female who presents emergency room with complaints of abdominal pain. Patient states her abdominal pain resolved while waiting in the waiting room. Patient recently had a surgery. Patient abdominal exam is negative. Patient's back exam is negative. Patient's vascular exam is negati ve. Patient's labs are essentially unremarkable. Patient's has a normal chemistry and a normal CBC. Patient does not require further emergency medical advice. Patient stable for discharge. Patient discharged home. Patient is medically cleared. - Differential Diagnosis Abdominal pain, body pain, muscle aches Critical care attestation.: If time is entered above; I have spent that time in minutes in the direct care of this critically ill patient, excluding procedure time. ED Disposition Clinical Impression: Body aches Abdominal pain Qualifiers: Abdominal location: lower abdomen, unspecified Qualified Code(s): R10.30 - Lower abdominal pain, unspecified Low back sprain Qualifiers: Encounter type: initial encounter Qualified Code(s): S33.5XXA - Sprain of ligaments of lumbar spine, initial encounter Disposition: - TO HOME OR SELFCARE Is pt being admited?: No Does the pt Need Aspirin: No Condition: Stable Instructions: Abdominal Pain (ED), Abdominal Pain, Adult Additional Instructions: Patient to follow-up with primary care in 2 to 3 days. Patient to rest. Patient to increase water. Patient to take Tylenol or ibuprofen as needed for pain. Patient to take meds as directed. Patient to return to the ER if condition worsens, changes or new symptoms arise. Prescriptions: Naproxen [Naprosyn TAB] 500 mg PO BID PRN #20 tab PRN Reason: Pain , Severe (7-10) methOCARBAMOL [Robaxin TAB] 500 mg PO Q6H PRN #15 tablet PRN Reason: Pain , Severe (7-10) Referrals: PRIMARY CARE, [Primary Care Provider] - 2-3 Days RAYMUNDO CHACON MD [Staff Physician] - 2-3 Days Time of Disposition: 03:34
[2020-06-10 04:02] VITALS: BP 126/73
== END 2020-06-10 04:00 | disposition home or self-care (01) ==
LOC: ED 23:55
DX: S33.5XXA Sprain of ligaments of lumbar spine, initial encounter (principal); R10.32 Left lower quadrant pain; I10 Essential (primary) hypertension; E11.9 Type 2 diabetes mellitus without complications; Z98.890 Other specified postprocedural states; Z79.899 Other long term (current) drug therapy; Z87.891 Personal history of nicotine dependence; X58.XXXA Exposure to other specified factors, initial encounter; Y93.89 Activity, other specified; Y92.89 Other specified places as the place of occurrence of the external cause; Y99.8 Other external cause status
CPT/HCPCS: 36415; 80053; 81001; 84703; 85025

== ENCOUNTER 2020-07-09 16:37 | Emergency (ER) | payer OTHER ==
--- NOTE | 2020-07-09 17:10 | Event Note ---
ED Screening Note Date of service: 07/09/20 Time: 17:09 ED Screening Note: Patient presents with complaints of abdominal pain, nausea and vomiting, chest pain, and headache for 2 weeks Patient was seen and admitted and had a exploratory laparoscopic surgery performed to evaluate abdominal pain Noted to have Petersons hernia Denies hematemesis/coffee-ground emesis or diarrhea today This initial assessment/diagnostic orders/clinical plan/treatment(s) is/are subject to change based on patients health status, clinical progression and re- assessment by fellow clinical providers in the ED. Further treatment and workup at subsequent clinical providers discretion. Patient/guardian urged not to elope from the ED as their condition may be serious if not clinically assessed and managed. Initial orders include: Labs
[2020-07-09 17:31] LABS: Basophils # (Auto) 0.1 K/mm3 (0.0-0.1); Eosinophils % (Auto) 0.8 % (0.0-4.3); Hematocrit 32.8 % (30.3-42.9); Hemoglobin 11.2 gm/dl (10.1-14.3); Lymphocytes # (Auto) 1.7 K/mm3 (1.2-5.4); Lymphocytes % (Auto) 31.7 % (13.4-35.0); Mean Corpuscular HGB Conc 34 % (30-34); Mean Corpuscular Volume 95 fl (79-97); Monocytes # (Auto) 0.6 K/mm3 (0.0-0.8); Monocytes % (Auto) 11.1 % (0.0-7.3); Platelet Count 315 K/mm3 (140-440); Red Blood Count 3.44 M/mm3 (3.65-5.03); Red Cell Distribution Width 14.4 % (13.2-15.2)
--- NOTE | 2020-07-09 17:45 | XRay Report ---
CHEST 2 VIEWS INDICATION / CLINICAL INFORMATION: Chest pain. COMPARISON: None available. FINDINGS: SUPPORT DEVICES: None. HEART / MEDIASTINUM: The heart size and pulmonary vasculature are normal. The aorta is normal in sam aracely. LUNGS / PLEURA: No significant pulmonary or pleural abnormality. No pneumothorax. ADDITIONAL FINDINGS: No significant additional findings. IMPRESSION: No acute findings. Signer Name: Surjit Wright MD Signed: 07/09/2020 5:41 PM Workstation Name: [id number]
[2020-07-09 17:51] LABS: Alanine Aminotransferase 6 units/L (7-56); Albumin 4.9 g/dL (3.9-5); Blood Urea Nitrogen 12 mg/dL (7-17); Calcium 9.2 mg/dL (8.4-10.2); Hemolysis Index 0
[2020-07-09 17:52] LABS: BUN/Creatinine Ratio 17
[2020-07-09 20:31] LABS: Bacteria,Urine 1+ /HPF (Negative); Bilirubin,Urine NEG (Negative); Blood,Urine SM (Negative); Color,Urine Straw (Yellow); Protein,Urine <15 mg/dL mg/dL (Negative); Urobilinogen,Urine < 2.0 mg/dL (<2.0); WBC,Urine < 1.0 /HPF (0.0-6.0)
[2020-07-09 22:39] LABS: Amphetamine Screen,Urine Negative; Benzodiazepines Screen,Urine Negative; Cannabinoid Screen,Urine Negative; Cocaine Screen,Urine Negative; Methadone Screen,Urine Negative; Opiate Screen,Urine Negative
--- NOTE | 2020-07-10 00:47 | Cat Scan Report ---
CT HEAD WITHOUT CONTRAST HISTORY: headache COMPARISON: None TECHNIQUE: CT imaging of the head was performed in the axial, sagittal, and coronal projections and bone algori thm in axial projection in the soft tissue algorithm. All CT scans at this location are performed using CT dose reduction for ALARA by means of automated e xposure control. CONTRAST: None. FINDINGS: Streak artifact obscures fine detail and limits the diagnostic accuracy of the examination Cerebral and Cerebellar Hemispheres: No evidence of mass or mass effect. No midline shift. No acute hemorrhage. No acute cortical infarction. No extra-axial fluid collection. Ventricles: Normal in size and configuration for age. Osseous Structures: No significant abnormality. Visualized Paranasal Sinuses: No significant abnormality. Additional Findings: None IMPRESSION: 1. No acute intracranial abnormality. NOTE: Acute infarct may not be visible by noncontrast CT. Signer Name: Suman Maguire MD Signed: 07/10/2020 12:42 AM Workstation Name: [id number]
--- NOTE | 2020-07-10 00:50 | Cat Scan Report ---
CT ABDOMEN AND PELVIS WITH CONTRAST INDICATION / CLINICAL INFORMATION: abd pain. TECHNIQUE: Axial CT images were obtained through the abdomen and pelvis after 100 cc Omnipaque 300 milligrams pe rcent IV contrast. All CT scans at this location are performed using CT dose reduction for ALARA by means of automated exposure control. COMPARISON: 05/19/2020 FINDINGS: LOWER CHEST: No significant abnormality. LIVER: No significant abnormality. GALLBLADDER: No significant abnormality. BILE DUCTS: No significant abnormality. PANCREAS: No significant abnormality. SPLEEN: No significant abnormality. ADRENALS: No significant abnormality. RIGHT KIDNEY and URETER: No significant abnormality. LEFT KIDNEY and URETER: No significant abnormality. STOMACH and SMALL BOWEL: Gastric bypass surgery noted COLON: No significant abnormality. APPENDIX: No significant abnormality. PERITONEUM: No free fluid. No free air. No fluid collection. LYMPH NODES: No significant adenopathy. AORTA and ARTERIES: No significant abnormality. IVC and VEINS: No significant abnormality. URINARY BLADDER: No significant abnormality. REPRODUCTIVE ORGANS: No significant abnormality. ADDITIONAL FINDINGS: None. SKELETAL SYSTEM: No significant abnormality. IMPRESSION: 1. No significant abnormality. Signer Name: Suman Maguire MD Signed: 07/10/2020 12:46 AM Workstation Name: [id number]
--- NOTE | 2020-07-10 01:28 | Emergency Department Report ---
ED Abdominal Pain HPI - General Chief Complaint: Abdominal Pain Stated Complaint: N/V/HEADACHE/CHEST PAIN Time Seen by Provider: 07/09/20 17:05 Source: patient Mode of arrival: Ambulatory Limitations: No Limitations - History of Present Illness Initial Comments: 34-year-old female, history of diabetes, status post gastric bypass surgery 6 years ago, presents to ED with 2-week history of nausea, vomiting, abdominal pain. Patient states it feels like a worm or something is moving inside her abdomen. 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 Patient was birgit en to the OR emergently by her bariatric surgeon last month and was found to have a Roa hernia. Patient is also complaining of headache and pressure in her head. MD Complaint: abdominal pain -: week(s) (2) Location: diffuse Radiation: none Migration to: no migration Severity: moderate Consistency: intermittent Improves With: nothing Worsens With: nothing Associated Symptoms: nausea, vomiting. denies: diarrhea, fever, constipation - Related Data Previous Rx's Medication Instructions Recorded Last Taken Type Naproxen [Naprosyn TAB] 500 mg PO BID PRN #20 tab 06/10/20 Unknown Rx methOCARBAMOL [Robaxin TAB] 500 mg PO Q6H PRN #15 tablet 06/10/20 Unknown Rx Allergies Allergy/AdvReac Type Severity Reaction Status Date / Time No Known Allergies Allergy Verified 07/09/20 17:03 ED Review of Systems ROS: Stated complaint: N/V/HEADACHE/CHEST PAIN Other details as noted in HPI Comment: All other systems reviewed and negative Constitutional: denies: chills, fever Gastrointestinal: abdominal pain, nausea, vomiting. denies: diarrhea, con stipation Psychiatric: denies: homicidal thoughts, suicidal thoughts ED Past Medical Hx - Past Medical History Hx Hypertension: Yes (on hydralizine PRN) Hx Congestive Heart Failure: No Hx Diabetes: Yes Hx Asthma: No Hx COPD: No Hx HIV: No - Surgical History Additional Surgical History: Gastric Bypass. Umbilical Hernia repair. C- section. Systemic Fungal Infection. abd - Social History Smoking Status: Former Smoker Substance Use Type: None - Medications Home Medications: Home Medications Medication Instructions Recorded Confirmed Last Taken Type Naproxen [Naprosyn TAB] 500 mg PO BID PRN #20 tab 06/10/20 Unknown Rx methOCARBAMOL [Robaxin TAB] 500 mg PO Q6H PRN #15 tablet 06/10/20 Unknown Rx ED Physical Exam - General Limitations: No Limitations General appearance: alert, in no apparent distress, other (Comfortable, non toxic-appearing) - Head Head exam: Present: atraumatic, normocephalic - Eye Eye exam: Present: normal appearance - ENT ENT exam: Present: normal orophraynx, mucous membranes moist - Neck Neck exam: Present: normal inspection - Respiratory Respiratory exam: Present: normal lung sounds bilaterally. Absent: respiratory distress - Cardiovascular Cardiovascular Exam: Present: normal rhythm, tachycardia - GI/Abdominal GI/Abdominal exam: Present: soft. Absent: distended, tenderness - Extremities Exam Extremities exam: Present: normal inspection - Neurological Exam Neurological exam: Present: alert, oriented X3 - Psychiatric Psychiatric exam: Present: other (Patient reporting some tactile hallucinations (worms crawling and her stomach, a film around her head that stops her in the face)). Absent: homicidal ideation, suicidal ideation - Skin Skin exam: Present: warm, dry, intact, normal color ED Course Vital Signs 07/09/20 07/09/20 07/09/20 17:02 21:45 22:01 Temperature 98.3 F 98.5 F Pulse Rate 106 H 74 80 Respiratory 18 13 Rate Blood Pressure 121/80 121/80 Blood Pressure 108/73 [Left] O2 Sat by Pulse 100 100 Oximetry 07/09/20 07/09/20 07/09/20 22:15 22:31 22:45 Temperature Pulse Rate 72 87 69 Respiratory 14 14 Rate Blood Pressure 121/80 138/95 151/91 Blood Pressure [Left] O2 Sat by Pulse Oximetry 07/09/20 07/09/20 07/09/20 23:01 23:15 23:31 Temperature Pulse Rate 72 76 77 Respiratory 13 18 13 Rate Blood Pressure 149/91 147/90 130/69 Blood Pressure [Left] O2 Sat by Pulse 100 Oximetry 07/09/20 07/09/20 07/10/20 23:45 23:53 00:01 Temperature Pulse Rate 71 69 85 Respiratory 15 12 17 Rate Blood Pressure 134/74 134/74 146/65 Blood Pressure [Left] O2 Sat by Pulse 100 100 100 Oximetry 07/10/20 07/10/20 07/10/20 00:29 00:31 00:45 Temperature Pulse Rate 67 71 71 Respiratory 22 16 18 Rate Blood Pressure 146/65 146/65 154/73 Blood Pressure [Left] O2 Sat by Pulse 100 100 98 Oximetry 07/10/20 07/10/20 07/10/20 01:01 01:15 08:59 Temperature Pulse Rate 75 77 72 Respiratory 9 L 11 L 16 Rate Blood Pressure 116/75 119/72 Blood Pressure 121/72 [Left] O2 Sat by Pulse 100 100 98 Oximetry - Consultations Consultation #1: 07/10/20 01:[address] Ag, patient's bariatric surgeon, regarding patient. Since patient is able to tolerate p.o., she would like for patient to follow-up in her office. ED Medical Decision Making - Lab Data Result diagrams: 07/09/20 17:18 07/09/20 17:18 - Radiology Data Radiology results: report reviewed, image reviewed - Medical Decision Making 34-year-old female presents to ED with report of abdominal pain, nausea and vomiting, and headache. Labs are normal. Patient is comfortable, nontoxic- appearing. No emesis in the ED. Patient has not not required or asked for any pain medication. CT head and CT abdomen pelvis is unremarkable. Patient is currently tolerating p.o. I have spoken with patient's bariatric surgeon, who would like for patient to follow-up in the office with her. Patient denies any psychiatric history, however she seems to be having lots of tactile hallucinations. Patient is preoccupied with the fact that she believes she has worms moving inside of her stomach. Patient states it will go up into her chest from her abdomen and start "hissing". Patient states she also feels as though there is a film or discharge that is coming out of the top of her head that slaps her in the face like a ponytail. Patient states she does not understand this feeling because she states, "I don't have hair." Patient is also complaining of having "air in between my tongue and the roof of my mouth." Patient has 2 scars on bilateral cheeks and she states that something crawled into 1 side of her face and came out the other side through those scars. Patient's labs are normal, including a negative drug screen. Patient does not have any SI or HI, however I believe patient might benefit from a mental health evaluation. Patient is medically clear. Will dispo per psych. - Differential Diagnosis bowel obstruction, drug intoxication, psychosis Critical care attestation.: If time is entered above; I have spent that time in minutes in the direct care of this critically ill patient, excluding procedure time. ED Disposition Clinical Impression: Abdominal pain Disposition: - TO HOME OR SELFCARE Is pt being admited?: No Condition: Stable Instructions: Abdominal Pain, Adult, [id number], Abdominal Pain (ED) Referrals: SANDIE AG MD [Staff Physician] - 3-5 Days [facility] [Outside] - 3-5 Days Time of Disposition: 01:41
[2020-07-10] MEDS ORDERED: LORazepam 1 MG TAB PO ONE (01:57)
[2020-07-10 09:00] VITALS: BP 121/72
--- NOTE | 2020-07-11 21:36 | Electrocardiograph Report ---
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
== END 2020-07-10 12:31 | disposition home or self-care (01) ==
LOC: ED 16:37
DX: R10.84 Generalized abdominal pain (principal); R11.2 Nausea with vomiting, unspecified; I10 Essential (primary) hypertension; E11.9 Type 2 diabetes mellitus without complications; Z98.890 Other specified postprocedural states; Z87.891 Personal history of nicotine dependence; Z79.899 Other long term (current) drug therapy
CPT/HCPCS: 36415; 70450; 71046; 74177; 80053; 80307; 81001; 83690; 85025; 93005; 99285; Q9967; 80320; G0480

== ENCOUNTER 2020-08-30 05:22 | Emergency (ER) | payer OTHER ==
[2020-08-30] MEDS ORDERED: methylPREDNISolone Sod Succinate 125 MG/2 ML INJ IM ONE (06:41)
[2020-08-30] MEDS ORDERED: BUTALB/ACETAMINOPHEN/CAFFEINE TAB PO ONE (06:41)
[2020-08-30] MEDS ORDERED: diphenhydrAMINE 50 MG/ML VIAL IV ONE (06:42)
[2020-08-30] MEDS ORDERED: METOCLOPRAMIDE 10 MG/2 ML INJ IV ONE (06:42)
--- NOTE | 2020-08-30 06:45 | Emergency Department Report ---
ED General Adult HPI - General Chief complaint: Headache Stated complaint: BARAHONA, VOMITING Time Seen by Provider: 08/30/20 06:19 Source: EMS Mode of arrival: Stretcher Limitations: No Limitations - History of Present Illness Initial comments: Patient presents emerged part chief complaint of a headache that started yesterday. Patient states that she has a pressure-like headache to the back of her head and wraps around to the front. Patient also complains of vomiting 3 times after the initiation of the headache. Patient states she started on itraconazole 3 days ago for known mold exposure. Patient also complains of shortness of breath yesterday but denies chest pain or abdominal pain. -: Sudden Location: head Severity scale (0 -10): 6 Quality: dull, other (Throbbing) Consistency: constant Improves with: none Worsens with: none Associated Symptoms: denies other symptoms Treatments Prior to Arrival: none - Related Data Previous Rx's Medication Instructions Recorded Last Taken Type Naproxen [Naprosyn TAB] 500 mg PO BID PRN #20 tab 06/10/20 Unknown Rx methOCARBAMOL [Robaxin TAB] 500 mg PO Q6H PRN #15 tablet 06/10/20 Unknown Rx Ketorolac [Toradol] 10 mg PO Q8H PRN #30 tablet 08/30/20 Unknown Rx Allergies Allergy/AdvReac Type Severity Reaction Status Date / Time No Known Allergies Allergy Verified 07/09/20 17:03 ED Review of Systems ROS: Stated complaint: BARAHONA, VOMITING Other details as noted in HPI Comment: All other systems reviewed and negative Constitutional: denies: chills, fever Eyes: denies: eye pain, eye discharge, vision change ENT: denies: ear pain, throat pain Respiratory: denies: cough, shortness of breath, wheezing Cardiovascular: denies: chest pain, palpitations Endocrine: no symptoms reported Gastrointestinal: denies: abdominal pain, nausea, diarrhea Genitourinary: denies: urgency, dysuria, discharge Musculoskeletal: denies: back pain, joint swelling, arthralgia Skin: denies: rash, lesions Neurological: headache. denies: weakness, paresthesias Psychiatric: denies: anxiety, depression Hematological/Lymphatic: denies: easy bleeding, easy bruising ED Past Medical Hx - Past Medical History Hx Hypertension: Yes (on hydralizine PRN) Hx Congestive Heart Failure: No Hx Diabetes: Yes Hx Asthma: No Hx COPD: No Hx HIV: No - Surgical History Additional Surgical History: Gastric Bypass. Umbilical Hernia repair. C- section. Systemic Fungal Infection. abd - Social History Smoking Status: Unknown if ever smoked - Medications Home Medications: Home Medications Medication Instructions Recorded Confirmed Last Taken Type Naproxen [Naprosyn TAB] 500 mg PO BID PRN #20 tab 06/10/20 Unknown Rx methOCARBAMOL [Robaxin TAB] 500 mg PO Q6H PRN #15 tablet 06/10/20 Unknown Rx Ketorolac [Toradol] 10 mg PO Q8H PRN #30 tablet 08/30/20 Unknown Rx ED Physical Exam - General Limitations: No Limitations General appearance: alert, in no apparent distress - Head Head exam: Present: atraumatic, normocephalic - Eye Eye exam: Present: normal appearance, PERRL, EOMI - ENT ENT exam: Present: mucous membranes moist - Neck Neck exam: Present: normal inspection - Respiratory Respiratory exam: Present: normal lung sounds bilaterally. Absent: respiratory distress - Cardiovascular Cardiovascular Exam: Present: regular rate, normal rhythm. Absent: systolic murmur, diastolic murmur, rubs, gallop - GI/Abdominal GI/Abdominal exam: Present: soft, normal bowel sounds. Absent: distended, tenderness - Extremities Exam Extremities exam: Present: normal inspection - Back Exam Back exam: Present: normal inspection - Neurological Exam Neurological exam: Present: alert, oriented X3, CN II-XII intact, other (Finger-nose, [id number], rapid hand movements all negative). Absent: motor sensory deficit - Psychiatric Psychiatric exam: Present: normal affect, normal mood - Skin Skin exam: Present: warm, dry, intact, normal color. Absent: rash ED Course Vital Signs 08/30/20 08/30/20 08/30/20 05:39 05:40 05:45 Temperature 98.4 F Pulse Rate 88 Respiratory 14 Rate Blood Pressure 133/81 133/81 O2 Sat by Pulse 100 100 100 Oximetry 08/30/20 08/30/20 08/30/20 06:01 06:15 06:31 Temperature Pulse Rate Respiratory Rate Blood Pressure 128/76 128/76 138/93 O2 Sat by Pulse 100 100 100 Oximetry ED Medical Decision Making - Lab Data Result diagrams: 08/30/20 06:55 08/30/20 06:55 Lab Results 08/30/20 08/30/20 Range/Units 06:55 06:55 WBC 4.7 (4.5-11.0) K/mm3 RBC 3.03 L (3.65-5.03) M/mm3 Hgb 9.6 L (10.1-14.3) gm/dl Hct 28.6 L (30.3-42.9) % MCV 95 (79-97) fl MCH 32 (28-32) pg MCHC 33 (30-34) % RDW 15.7 H (13.2-15.2) % Plt Count 288 (140-440) K/mm3 Lymph % (Auto) 43.5 H (13.4-35.0) % [place] % (Auto) 9.6 H (0.0-7.3) % Eos % (Auto) 0.8 (0.0-4.3) % Baso % (Auto) 1.5 (0.0-1.8) % Lymph # (Auto) 2.1 (1.2-5.4) K/mm3 [place] # (Auto) 0.5 (0.0-0.8) K/mm3 Eos # (Auto) 0.0 (0.0-0.4) K/mm3 Baso # (Auto) 0.1 (0.0-0.1) K/mm3 Seg Neutrophils % 44.6 (40.0-70.0) % Seg Neutrophils # 2.1 (1.8-7.7) K/mm3 Sodium 138 (137-145) mmol/L Potassium 3.4 L (3.6-5.0) mmol/L Chloride 103.5 (98-107) mmol/L Carbon Dioxide 25 (22-30) mmol/L Anion Gap 13 mmol/L BUN 9 (7-17) mg/dL Creatinine 0.6 (0.6-1.2) mg/dL Estimated GFR > 60 ml/min BUN/Creatinine Ratio 15 % Glucose 76 (65-100) mg/dL Calcium 8.8 (8.4-10.2) mg/dL - Radiology Data Radiology results: report reviewed - Medical Decision Making discussed results with patient BARAHONA resolved with meds I did discuss with the patient that common reactions from itraconazole is all include headache and dyspnea Critical care attestation.: If time is entered above; I have spent that time in minutes in the direct care of this critically ill patient, excluding procedure time. ED Disposition Clinical Impression: Headache Disposition: DC-01 TO HOME OR SELFCARE Is pt being admited?: No Does the pt Need Aspirin: No Condition: Stable Instructions: General Headache Without Cause Additional Instructions: return if worse Prescriptions: Ketorolac [Toradol] 10 mg PO Q8H PRN #30 tablet PRN Reason: Pain Referrals: PRIMARY CARE, [Primary Care Provider] - 3-5 Days RAYMUNDO CHACON MD [Staff Physician] - 3-5 Days Time of Disposition: 08:55
[2020-08-30 07:07] LABS: Basophils # (Auto) 0.1 K/mm3 (0.0-0.1); Basophils % (Auto) 1.5 % (0.0-1.8); Eosinophils % (Auto) 0.8 % (0.0-4.3); Hematocrit 28.6 % (30.3-42.9); Hemoglobin 9.6 gm/dl (10.1-14.3); Lymphocytes # (Auto) 2.1 K/mm3 (1.2-5.4); Lymphocytes % (Auto) 43.5 % (13.4-35.0); Mean Corpuscular HGB Conc 33 % (30-34); Mean Corpuscular Volume 95 fl (79-97); Monocytes # (Auto) 0.5 K/mm3 (0.0-0.8); Monocytes % (Auto) 9.6 % (0.0-7.3); Platelet Count 288 K/mm3 (140-440); Red Blood Count 3.03 M/mm3 (3.65-5.03); Red Cell Distribution Width 15.7 % (13.2-15.2)
[2020-08-30 07:23] LABS: Blood Urea Nitrogen 9 mg/dL (7-17); Calcium 8.8 mg/dL (8.4-10.2); Hemolysis Index 6
[2020-08-30 07:25] LABS: BUN/Creatinine Ratio 15
--- NOTE | 2020-08-30 07:45 | Cat Scan Report ---
CT HEAD WITHOUT CONTRAST INDICATION / CLINICAL INFORMATION: Pt complains of a headache. TECHNIQUE: Axial imaging performed from the skull apex through the skull base without the use of cont rast. Sagittal and coronal reformatted images. All CT scans at this location are performed using CT dose reduction for ALARA by means of automated exposure control. COMPARISON: 07/10/2020 FINDINGS: CEREBRAL PARENCHYMA: No significant abnormality. No acute territorial infarct. HEMORRHAGE: None. EXTRA-AXIAL SPACES: Normal in size and morphology for the patient's age. VENTRICULAR SYSTEM: Normal in size and morphology for the patient's age. MIDLINE SHIFT OR HERNIATION: None. CEREBELLUM / BRAINSTEM: No significant abnormality. CALVARIUM: No significant abnormality. ORBITS: Normal as visualized. PARANASAL SINUSES / MASTOID AIR CELLS: Normal as visualized. SOFT TISSUES of HEAD: No significant abnormality. ADDITIONAL FINDINGS: None. IMPRESSION: No acute intracranial abnormality. Cranial CT scan within normal limits. Signer Name: Perry Quiles Jr, MD Signed: 08/30/2020 7:41 AM Workstation Name: [id number]
--- NOTE | 2020-08-30 08:28 | XRay Report ---
CHEST 1 VIEW INDICATION: sob. COMPARISON: 07/09/2020 FINDINGS: Support devices: None. Heart: Within normal limits. Lungs/Pleura: No acute air space or interstitial disease. Additional findings: None. IMPRESSION: No acute findings. Signer Name: Perry Quiles Jr, MD Signed: 08/30/2020 8:24 AM Workstation Name: [id number]
[2020-08-30 09:27] VITALS: BP 118/81
== END 2020-08-30 09:26 | disposition home or self-care (01) ==
LOC: ED 05:22
DX: R51.9 Headache, unspecified (principal); I10 Essential (primary) hypertension; E11.9 Type 2 diabetes mellitus without complications; Z98.890 Other specified postprocedural states; Z79.899 Other long term (current) drug therapy
CPT/HCPCS: 36415; 70450; 71045; 80048; 85025; 96372; 96374; 96375; 99285; J1200; J2765; J2930

== ENCOUNTER 2020-12-24 11:11 | Emergency (ER) | payer OTHER ==
[2020-12-24 11:21] VITALS: BP 146/91
--- NOTE | 2020-12-24 11:48 | Emergency Department Report ---
ED General Adult HPI - General Chief complaint: Upper Respiratory Infection Stated complaint: PAIN BACK OF HEAD, CHEST/BREATHING Time Seen by Provider: 12/24/20 11:25 Source: patient Mode of arrival: Ambulatory Limitations: No Limitations - History of Present Illness Initial comments: 35-year-old -Armenian female patient presents with complaints of intermittent left-sided posterior headaches that have been occurring for the past 7 months. No current headache per patient. She states the headache sometimes radiates into her face and causes pressure in her nose. She describes the headache as a pressure-like feeling. She denies any blood thinner use or head trauma. Past medical history includes diabetes managed with diet per patient. She is not currently following with the PCP. She denies any numbness/tingling/weakness in her limbs, dizziness, nausea/vomiting, vision changes, chest pain, shortness of breath, confusion, memory loss, or difficulty with speech/ambulation. - Related Data Previous Rx's Medication Instructions Recorded Last Taken Type Naproxen [Naprosyn TAB] 500 mg PO BID PRN #20 tab 06/10/20 Unknown Rx methOCARBAMOL [Robaxin TAB] 500 mg PO Q6H PRN #15 tablet 06/10/20 Unknown Rx Ketorolac [Toradol] 10 mg PO Q8H PRN #30 tablet 08/30/20 Unknown Rx Allergies Allergy/AdvReac Type Severity Reaction Status Date / Time No Known Allergies Allergy Verified 07/09/20 17:03 ED Review of Systems ROS: Stated complaint: PAIN BACK OF HEAD, CHEST/BREATHING Other details as noted in HPI Constitutional: denies: chills, fever, malaise ENT: denies: throat pain Respiratory: denies: cough, shortness of breath Gastrointestinal: denies: abdominal pain, nausea, vomiting Musculoskeletal: denies: back pain Neurological: denies: headache, weakness, numbness, paresthesias, abnormal gait, vertigo Hematological/Lymphatic: denies: easy bleeding, easy bruising ED Past Medical Hx - Past Medical History Hx Hypertension: Yes (on hydralizine PRN) Hx Congestive Heart Failure: No Hx Diabetes: Yes Hx Asthma: No Hx COPD: No Hx HIV: No - Surgical History Additional Surgical History: Gastric Bypass. Umbilical Hernia repair. C- section. Systemic Fungal Infection. abd - Social History Smoking Status: Unknown if ever smoked - Medications Home Medications: Home Medications Medication Instructions Recorded Confirmed Last Taken Type Naproxen [Naprosyn TAB] 500 mg PO BID PRN #20 tab 06/10/20 Unknown Rx methOCARBAMOL [Robaxin TAB] 500 mg PO Q6H PRN #15 tablet 06/10/20 Unknown Rx Ketorolac [Toradol] 10 mg PO Q8H PRN #30 tablet 08/30/20 Unknown Rx ED Physical Exam - General Limitations: No Limitations General appearance: alert, in no apparent distress - Head Head exam: Present: atraumatic, normocephalic - Eye Eye exam: Present: normal appearance. Absent: scleral icterus, periorbital swelling - ENT ENT exam: Absent: other (No sinus tenderness to palpation noted bilaterally in the frontal or maxillary sinuses or ethmoid sinuses; bilateral turbinate erythema and swelling noted) - Neck Neck exam: Present: normal inspection, full ROM - Respiratory Respiratory exam: Absent: respiratory distress - Cardiovascular Cardiovascular Exam: Present: regular rate - Neurological Exam Neurological exam: Present: alert, oriented X3, CN II-XII intact. Absent: normal gait, motor sensory deficit - Expanded Neurological Exam Expanded Cerebellar function: Finger to Nose: Normal, Heel to Harper: Normal, Romberg: Normal Sensory exam: Upper Extremity Light Touch: Normal, Lower Extremity Light Touch: Normal Motor strength exam: RUE: 4, LUE: 4, RLE: 4, LLE: 4 Best Eye Response (Kristin): (4) open spontaneously Best Motor Response (Kristin): (6) obeys commands Best Verbal Response (Sunman): (5) oriented Kristin Total: 15 - Psychiatric Psychiatric exam: Present: normal affect, normal mood - Skin Skin exam: Present: warm, dry, intact, normal color. Absent: rash ED Course Vital Signs 12/24/20 11:18 Temperature 98.5 F Pulse Rate 84 Respiratory 18 Rate Blood Pressure 146/91 O2 Sat by Pulse 99 Oximetry ED Medical Decision Making - Medical Decision Making 35-year-old -Armenian female patient presents with complaints of intermittent left-sided posterior headaches that have been occurring for the past 7 months. No current headache per patient. She states the headache sometimes radiates into her face and causes pressure in her nose. She describes the headache as a pressure-like feeling. She denies any blood thinner use or head trauma. Past medical history includes diabetes managed with diet per patient. She is not currently following with the PCP. She denies any numbness/tingling/weakness in her limbs, dizziness, nausea/vomiting, vision changes, chest pain, shortness of breath, confusion, memory loss, or difficulty with speech/ambulation. Neuro exam is normal. Recommend Flonase/Claritin as needed for nasal 0 symptoms. Given chronicity of patient's symptoms along with normal neuro exam, no imaging is indicated at this time or emergency basis. Recommend patient follows up with neurology for further evaluation within 3 to 5 days. Discussed in detail signs and symptoms that should prompt immediate return to the ED with patient who verbalized understanding. Critical care attestation.: If time is entered above; I have spent that time in minutes in the direct care of this critically ill patient, excluding procedure time. ED Disposition Clinical Impression: Intermittent headache, Elevated blood-pressure reading without diagnosis of hypertension Disposition: 01 HOME / SELF CARE / HOMELESS Is pt being admited?: No Condition: Stable Instructions: Form - Headache Record, Preventing Hypertension Referrals: [facility] [Provider Group] - 2-3 Days (blood pressure recheck ) [facility] [Provider Group] - 3-5 Days (headaches ) Forms: Work/School Release Form(ED)
== END 2020-12-24 12:19 | disposition home or self-care (01) ==
LOC: ED 11:11
DX: G44.89 Other headache syndrome (principal); R03.0 Elevated blood-pressure reading, without diagnosis of hypertension; E11.8 Type 2 diabetes mellitus with unspecified complications
CPT/HCPCS: 99281